=== PATIENT | female | born 1965 | race Caucasian/White ===

== ENCOUNTER 2019-03-18 02:31 | Inpatient (IN) | payer MEDICAID ==
[2019-03-18 03:11] LABS: ADD MAN DIFF? NO
[2019-03-18 03:12] LABS: WHITE BLOOD COUNT 15.9 10^3/ul (4.8-10.8)
[2019-03-18] MEDS: SOD CHLORIDE 0.9% 1,000 ML IV ×2 (03:12→05:07)
[2019-03-18] MEDS: ONDANSETRON 4 MG INJ IV (03:12)
[2019-03-18 03:13] LABS: BASOPHILS % 0.1 % (0.0-2.0); EOSINOPHILS % 0.1 % (0.0-7.0); HEMATOCRIT 23.9 % (37.0-47.0); HEMOGLOBIN 7.9 g/dl (12.0-16.0); LYMPHOCYTES # 2.4 10^3/ul (0.8-2.9); LYMPHOCYTES % 15.2 % (15.0-51.0); MEAN CORPUSCULAR HEMOGLOBIN 29.2 pg (29.0-33.0); MEAN CORPUSCULAR HGB CONC 33.1 g/dl (32.0-37.0); MEAN CORPUSCULAR VOLUME 88.2 fl (82.0-101.0); MEAN PLATELET VOLUME 8.8 fl (7.4-10.4); MONOCYTE # 0.5 10^3/ul (0.3-0.9); MONOCYTES % 3.2 % (0.0-11.0); NEUTROPHIL # 12.6 10^3/ul (1.6-7.5); NEUTROPHILS % 79.2 % (39.0-77.0); NUCLEATED RED BLOOD CELLS # 0.1 10^3/ul (0.0-0.0); NUCLEATED RED BLOOD CELLS% 0.7 /100WBC (0.0-0.0); PLATELET COUNT 576 10^3/UL (140-415); RED BLOOD COUNT 2.71 10^6/ul (4.20-5.40)
[2019-03-18] MEDS: morphine 4 MG/ML VIAL IV (03:13)
[2019-03-18 03:31] LABS: INR 1.03; PROTIME 13.6 Sec (11.9-14.9); PT RATIO 1.1
[2019-03-18 03:32] LABS: PARTIAL THROMBOPLASTIN TIME 44.5 Sec (23.0-35.0)
[2019-03-18 04:50] LABS: ALANINE AMINOTRANSFERASE 29 IU/L (13-69); ALBUMIN 2.4 g/dl (3.3-4.9); ALBUMIN/GLOBULIN RATIO 0.66; ALKALINE PHOSPHATASE 513 IU/L (42-121); ANION GAP 7 (5-13); ASPARTATE AMINO TRANSFERASE 112 IU/L (15-46); BILIRUBIN,INDIRECT 0.2 mg/dl (0-1.1); BILIRUBIN,TOTAL 0.2 mg/dl (0.2-1.3); BLOOD UREA NITROGEN 14 mg/dl (7-20); CALCIUM 8.8 mg/dl (8.4-10.2); CARBON DIOXIDE 25 mmol/L (21-31); CHLORIDE 110 mmol/L (97-110); Estimated GFR 36 mL/min (>60); GLUCOSE 108 mg/dl (70-220); LIPASE 71 U/L (23-300); SODIUM 142 mmol/L (135-144)
[2019-03-18] MEDS ORDERED: ACETAMINOPHEN 325 MG TAB PO (05:30)
[2019-03-18] MEDS ORDERED: ONDANSETRON 4 MG INJ IV ×2 (05:30→07:00)
[2019-03-18] MEDS ORDERED: ALBUTEROL/IPRATROPIUM (NEB) 3 ML AMP HHN (07:00)
[2019-03-18] MEDS: HYDROmorphONE 1 MG/ML SYG IV ×3 (10:04→23:28)
[2019-03-18] MEDS: NACL 0.9% 3 ML SYG IV (18:11)
[2019-03-19] MEDS: HYDROmorphONE 1 MG/ML SYG IV ×5 (05:04→20:09)
[2019-03-19 06:09] LABS: ADD MAN DIFF? NO
[2019-03-19 06:13] LABS: WHITE BLOOD COUNT 18.8 10^3/ul (4.8-10.8)
[2019-03-19 06:13] LABS: BASOPHILS % 0.2 % (0.0-2.0); EOSINOPHILS % 0.1 % (0.0-7.0); HEMATOCRIT 24.3 % (37.0-47.0); HEMOGLOBIN 7.8 g/dl (12.0-16.0); LYMPHOCYTES # 2.1 10^3/ul (0.8-2.9); LYMPHOCYTES % 11.2 % (15.0-51.0); MEAN CORPUSCULAR HEMOGLOBIN 29.3 pg (29.0-33.0); MEAN CORPUSCULAR HGB CONC 32.1 g/dl (32.0-37.0); MEAN CORPUSCULAR VOLUME 91.4 fl (82.0-101.0); MEAN PLATELET VOLUME 8.9 fl (7.4-10.4); MONOCYTE # 0.7 10^3/ul (0.3-0.9); MONOCYTES % 3.8 % (0.0-11.0); NEUTROPHIL # 15.6 10^3/ul (1.6-7.5); NEUTROPHILS % 82.6 % (39.0-77.0); NUCLEATED RED BLOOD CELLS # 0.1 10^3/ul (0.0-0.0); NUCLEATED RED BLOOD CELLS% 0.4 /100WBC (0.0-0.0); PLATELET COUNT 552 10^3/UL (140-415); RED BLOOD COUNT 2.66 10^6/ul (4.20-5.40); RED CELL DISTRIBUTION WIDTH 17.2 % (11.5-14.5)
[2019-03-19 06:26] LABS: HEMOGLOBIN A1C 5.8 % (0-5.9)
[2019-03-19 06:40] LABS: ALANINE AMINOTRANSFERASE 51 IU/L (13-69); ALBUMIN 2.6 g/dl (3.3-4.9); ALBUMIN/GLOBULIN RATIO 0.65; ALKALINE PHOSPHATASE 499 IU/L (42-121); ANION GAP 6 (5-13); ASPARTATE AMINO TRANSFERASE 293 IU/L (15-46); BILIRUBIN,INDIRECT 0.3 mg/dl (0-1.1); BILIRUBIN,TOTAL 0.3 mg/dl (0.2-1.3); BLOOD UREA NITROGEN 13 mg/dl (7-20); CALCIUM 8.8 mg/dl (8.4-10.2); CARBON DIOXIDE 25 mmol/L (21-31); CHLORIDE 107 mmol/L (97-110); CHOL/HDL RATIO 6.5 RATIO; CHOLESTEROL 131 mg/dl (100-200); Estimated GFR 39 mL/min (>60); GLUCOSE 80 mg/dl (70-220); HDL CHOLESTEROL 20 mg/dl (37-92); LDL CHOLESTEROL,CALCULATED 81 mg/dl; MAGNESIUM 1.9 mg/dl (1.7-2.5); PHOSPHORUS 2.7 mg/dl (2.5-4.9); POTASSIUM 4.2 mmol/L (3.5-5.1); SODIUM 138 mmol/L (135-144); TOTAL PROTEIN 6.6 g/dl (6.1-8.1); TRIGLYCERIDES 148 mg/dl (0-149)
[2019-03-19 06:42] LABS: IRON 22 ug/dl (35-150)
[2019-03-19 06:51] LABS: % IRON SATURATION 12 % SAT (22-52); TOTAL IRON BINDING CAPACITY 185 ug/dl (241-421)
[2019-03-19 07:09] LABS: CARCINOEMBRYONIC ANTIGEN 1.1 ng/ml (0.0-5.0)
[2019-03-19 07:13] LABS: CANCER ANTIGEN 19-9 4.4 U/ml (0.0-37.0)
[2019-03-19 07:19] LABS: ALPHA FETOPROTEIN 3.01 IU/L (0.00-7.21)
[2019-03-19 14:23] LABS: HEPATITIS B SURFACE ANTIGEN NEGATIVE (NEGATIVE)
[2019-03-19 14:40] LABS: HEPATITIS C VIRAL ANTIBODY NEGATIVE (NEGATIVE)
[2019-03-19 14:42] LABS: HEPATITIS B SURFACE ANTIBODY NEGATIVE (NEGATIVE)
[2019-03-19] MEDS: FUROSEMIDE 20 MG INJ IV (15:01)
[2019-03-19] MEDS: POLYETHYLENE GLYCOL 17 GM PACKET PO (20:09)
[2019-03-20] MEDS: HYDROmorphONE 1 MG/ML SYG IV ×6 (00:59→22:36)
[2019-03-20] MEDS: FUROSEMIDE 20 MG INJ IV (08:39)
[2019-03-20] MEDS: POLYETHYLENE GLYCOL 17 GM PACKET PO ×2 (08:39→22:24)
[2019-03-20 11:02] LABS: PROTIME 15.3 Sec (11.9-14.9); PT RATIO 1.2
[2019-03-20 11:03] LABS: PARTIAL THROMBOPLASTIN TIME 48.7 Sec (23.0-35.0)
[2019-03-21] MEDS: HYDROmorphONE 1 MG/ML SYG IV ×5 (02:51→21:11)
[2019-03-21 05:41] LABS: ADD MAN DIFF? NO
[2019-03-21 05:44] LABS: WHITE BLOOD COUNT 18.4 10^3/ul (4.8-10.8)
[2019-03-21 05:44] LABS: BASOPHILS % 0.2 % (0.0-2.0); EOSINOPHILS % 0.1 % (0.0-7.0); HEMATOCRIT 22.1 % (37.0-47.0); HEMOGLOBIN 7.1 g/dl (12.0-16.0); LYMPHOCYTES # 2.5 10^3/ul (0.8-2.9); LYMPHOCYTES % 13.6 % (15.0-51.0); MEAN CORPUSCULAR HEMOGLOBIN 28.4 pg (29.0-33.0); MEAN CORPUSCULAR HGB CONC 32.1 g/dl (32.0-37.0); MEAN CORPUSCULAR VOLUME 88.4 fl (82.0-101.0); MEAN PLATELET VOLUME 9.4 fl (7.4-10.4); MONOCYTE # 0.9 10^3/ul (0.3-0.9); MONOCYTES % 4.9 % (0.0-11.0); NEUTROPHIL # 14.6 10^3/ul (1.6-7.5); NEUTROPHILS % 79.2 % (39.0-77.0); NUCLEATED RED BLOOD CELLS # 0.1 10^3/ul (0.0-0.0); NUCLEATED RED BLOOD CELLS% 0.4 /100WBC (0.0-0.0); PLATELET COUNT 525 10^3/UL (140-415); RED CELL DISTRIBUTION WIDTH 17.4 % (11.5-14.5)
[2019-03-21 06:12] LABS: ANION GAP 6 (5-13); Estimated GFR 43 mL/min (>60)
[2019-03-21 06:21] LABS: BLOOD UREA NITROGEN 14 mg/dl (7-20); CALCIUM 9.2 mg/dl (8.4-10.2); CARBON DIOXIDE 28 mmol/L (21-31); CHLORIDE 104 mmol/L (97-110); GLUCOSE 94 mg/dl (70-220); POTASSIUM 4.1 mmol/L (3.5-5.1); SODIUM 138 mmol/L (135-144)
[2019-03-21] MEDS ORDERED: MIDAZOLAM 1 MG/ML 2 ML INJ (08:51)
[2019-03-21] MEDS ORDERED: FENTAnyl 50 MCG/ML VIAL ×2 (08:51→08:52)
[2019-03-21] MEDS ORDERED: LIDOCAINE 1% (MDV) 20 ML INJ (09:26)
[2019-03-21] MEDS ORDERED: GELATIN 12MM X 7 MM SPONGE (09:26)
[2019-03-21] MEDS: FUROSEMIDE 20 MG INJ IV (11:23)
[2019-03-21] MEDS: POLYETHYLENE GLYCOL 17 GM PACKET PO ×2 (11:23→21:10)
[2019-03-21 22:27] LABS: CANCER ANTIGEN 15-3 23 U/mL (<32)
[2019-03-21] MEDS: ACETAMINOPHEN 325 MG TAB PO (23:11)
[2019-03-22] MEDS: HYDROmorphONE 1 MG/ML SYG IV ×5 (04:21→21:22)
[2019-03-22] MEDS: POLYETHYLENE GLYCOL 17 GM PACKET PO ×2 (08:18→21:21)
[2019-03-22] MEDS: NACL 0.9% 3 ML SYG IV (08:18)
[2019-03-22] MEDS: FUROSEMIDE 20 MG INJ IV (08:18)
[2019-03-22] MEDS ORDERED: LIDOCAINE 1%/EPI 30 ML INJ (11:23)
[2019-03-22] MEDS ORDERED: HEPARIN 1000 UNITS/ML 10 ML INJ (11:54)
[2019-03-22] MEDS ORDERED: FENTAnyl 50 MCG/ML VIAL ×2 (11:54→12:47)
[2019-03-22] MEDS ORDERED: MIDAZOLAM 1 MG/ML 2 ML INJ ×2 (11:54→12:47)
[2019-03-22] MEDS ORDERED: POLYMYXIN/BACITRACIN 1L IRRIG (12:12)
[2019-03-22] MEDS ORDERED: CEFAZOLIN 1 GM/50 ML (PMX) 0 ML IVPB (12:19)
[2019-03-22] MEDS ORDERED: CEFAZOLIN 1 GM/50 ML (PMX) 50 ML IVPB (12:21)
[2019-03-22 15:38] LABS: ANION GAP 8 (5-13); BLOOD UREA NITROGEN 13 mg/dl (7-20); CALCIUM 8.9 mg/dl (8.4-10.2); CARBON DIOXIDE 27 mmol/L (21-31); CHLORIDE 103 mmol/L (97-110); CREATININE 1.17 mg/dl (0.44-1.00); Estimated GFR 49 mL/min (>60); GLUCOSE 74 mg/dl (70-220); POTASSIUM 3.6 mmol/L (3.5-5.1); SODIUM 138 mmol/L (135-144)
[2019-03-22 19:02] LABS: FREE T4 (FREE THYROXINE) 0.41 ng/dl (0.64-1.79)
[2019-03-22] MEDS: BISACODYL (EC) 5 MG TAB PO (21:21)
[2019-03-22] MEDS: ACETAMINOPHEN 325 MG TAB PO (23:54)
[2019-03-23] MEDS: HYDROmorphONE 1 MG/ML SYG IV ×5 (00:50→15:19)
[2019-03-23] MEDS: POLYETHYLENE GLYCOL 17 GM PACKET PO (08:54)
[2019-03-23] MEDS: FUROSEMIDE 20 MG INJ IV (08:55)
[2019-03-23 09:56] LABS: OCCULT BLOOD STOOL NEGATIVE (NEGATIVE)
== END 2019-03-23 16:55 | disposition home or self-care (01) | DRG 421 ==
LOC: E/R 02:31 → 2NE 05:28
PROC: 0FB10ZX Excision of Right Lobe Liver, Open Approach, Diagnostic (ICD-10-PCS; principal; 2019-03-21)
PROC: 0JH60WZ Insertion of Totally Implantable Vascular Access Device into Chest Subcutaneous Tissue and Fascia, Open Approach (ICD-10-PCS; 2019-03-21)
PROC: 02HV33Z Insertion of Infusion Device into Superior Vena Cava, Percutaneous Approach (ICD-10-PCS; 2019-03-21)
PROC: B245ZZ4 Ultrasonography of Left Heart, Transesophageal (ICD-10-PCS; 2019-03-23)
DX: C78.7 Secondary malignant neoplasm of liver and intrahepatic bile duct (principal); N17.9 Acute kidney failure, unspecified; Z68.41 Body mass index [BMI] 40.0-44.9, adult; I12.9 Hypertensive chronic kidney disease with stage 1 through stage 4 chronic kidney disease, or unspecified chronic kidney disease; N18.9 Chronic kidney disease, unspecified; E66.01 Morbid (severe) obesity due to excess calories; D64.9 Anemia, unspecified; C80.1 Malignant (primary) neoplasm, unspecified; K80.80 Other cholelithiasis without obstruction; E03.9 Hypothyroidism, unspecified; E87.70 Fluid overload, unspecified
CPT/HCPCS: 36415; 36561; 71045; 71250; 74176; 74182; 76775; 76942; 77012; 80048; 80053; 80061; 82105; 82270; 82378; 82728; 83036; 83540; 83690; 83735; 84100; 84439; 84443; 85025; 85610; 85730; 86300; 86301; 86706; 86803; 87340; 88307; 88313; 88341; 88342; 93306; 96361; 96374; 96375; 99285-25

== ENCOUNTER 2019-04-25 16:07 | Inpatient (IN) | payer MEDICAID, OTHER ==
[2019-04-25 16:58] LABS: ABNORMAL IP MESSAGE 1; HEMATOCRIT 16.2 % (37.0-47.0); MEAN CORPUSCULAR HEMOGLOBIN 31.8 pg (29.0-33.0); MEAN CORPUSCULAR HGB CONC 30.9 g/dl (32.0-37.0); MEAN CORPUSCULAR VOLUME 103.2 fl (82.0-101.0); MEAN PLATELET VOLUME 9.9 fl (7.4-10.4); PLATELET COUNT 102 10^3/UL (140-415); RED BLOOD COUNT 1.57 10^6/ul (4.20-5.40)
[2019-04-25 16:58] LABS: WHITE BLOOD COUNT 1.8 10^3/ul (4.8-10.8)
[2019-04-25] MEDS ORDERED: SOD CHLORIDE 0.9% 1,000 ML IV (17:00)
[2019-04-25 17:07] LABS: ADD MAN DIFF? YES; POSITIVE DIFF @See below
[2019-04-25 17:17] LABS: INR 1.08; PROTIME 14.1 Sec (11.9-14.9); PT RATIO 1.1
[2019-04-25 17:18] LABS: PARTIAL THROMBOPLASTIN TIME 40.4 Sec (23.0-35.0)
[2019-04-25 17:19] LABS: ALANINE AMINOTRANSFERASE 61 IU/L (13-69); ALBUMIN 2.7 g/dl (3.3-4.9); ALBUMIN/GLOBULIN RATIO 0.67; ALKALINE PHOSPHATASE 1047 IU/L (42-121); ANION GAP 7 (5-13); ASPARTATE AMINO TRANSFERASE 236 IU/L (15-46); BILIRUBIN,INDIRECT 0.8 mg/dl (0-1.1); BILIRUBIN,TOTAL 0.9 mg/dl (0.2-1.3); BLOOD UREA NITROGEN 17 mg/dl (7-20); CALCIUM 8.5 mg/dl (8.4-10.2); CARBON DIOXIDE 24 mmol/L (21-31); CHLORIDE 97 mmol/L (97-110); CREATININE 0.62 mg/dl (0.44-1.00); Estimated GFR > 60 mL/min (>60); GLUCOSE 98 mg/dl (70-220); POTASSIUM 4.3 mmol/L (3.5-5.1); SODIUM 128 mmol/L (135-144); TOTAL PROTEIN 6.7 g/dl (6.1-8.1)
[2019-04-25] MEDS: SODIUM CHLORIDE 0.9% 1L BAG IV* (17:20)
[2019-04-25] MEDS: FENTAnyl 50 MCG/ML VIAL IV (17:20)
[2019-04-25 17:44] LABS: ADD UMIC YES; UR ASCORBIC ACID NEGATIVE (NEGATIVE); UR BACTERIA FEW /HPF (NONE SEEN); UR BILIRUBIN (Dip) NEGATIVE (NEGATIVE); UR BLOOD (Dip) 1+ mg/dL (NEGATIVE); UR CLARITY CLOUDY (CLEAR); UR COLOR AMBER (YELLOW); UR GLUCOSE (Dip) NEGATIVE (NEGATIVE); UR KETONES (Dip) NEGATIVE (NEGATIVE); UR LEUKOCYTE ESTERASE (Dip) 1+ Leu/ul (NEGATIVE); UR NITRITE (Dip) NEGATIVE (NEGATIVE); UR RBC 0 /HPF (0-5); UR TOTAL PROTEIN (Dip) NEGATIVE (NEGATIVE); UR UROBILINOGEN (Dip) 2+ mg/dL (NEGATIVE); UR WBC 5 /HPF (0-5)
[2019-04-25 17:54] LABS: BAND NEUTROPHILS % (M) 1 % (0-4); ERYTHROBLAST% (NRBC) (M) 2 % (0-0); LYMPHOCYTES #M 1.2 10^3/ul (0.8-2.9); LYMPHOCYTES % (M) 68 % (15-51); MONOCYTES % (M) 1 % (0-11); SEG NEUT #M 0.5 10^3/ul (1.6-7.5); SEGMENTED NEUTROPHILS (M) % 30 % (39-77); SMUDGE%M 3 % (0-0)
[2019-04-25 17:54] LABS: TROPONIN-I < 0.012 ng/ml (0.000-0.120)
[2019-04-25 17:56] LABS: ANISOCYTOSIS 1+ (0-0); HYPOCHROMASIA 1+ (0-0); PLATELET ESTIMATE DECREASED
[2019-04-25 17:57] LABS: PATH REVIEW? YES-PATH TO CONFIRM
[2019-04-25 18:23] LABS: LIPASE 137 U/L (23-300)
[2019-04-25] MEDS: CEFTRIAXONE 1 GM/50 ML (PMX) 50 ML IVPB (18:32)
[2019-04-25] MEDS ORDERED: NACL 0.9% 3 ML SYG IV (19:00)
[2019-04-25 19:04] LABS: IMMEDIATE SPIN CROSSMATCH 1 4
[2019-04-25 20:00] LABS: LACTIC ACID 1.4 mmol/L (0.5-2.0)
[2019-04-25] MEDS: SOD CHLORIDE 0.9% 1,000 ML IV (21:35)
[2019-04-25 22:09] LABS: LACTIC ACID 1.2 mmol/L (0.5-2.0)
[2019-04-25] MEDS: MIDODRINE 5 MG TAB PO (22:11)
[2019-04-26] MEDS: morphine 2 MG INJ IV ×3 (00:50→08:04)
[2019-04-26] MEDS: HYDROCODONE/APAP (5/325) TAB PO ×2 (00:51→08:04)
[2019-04-26] MEDS: HYDROmorphONE 1 MG/ML SYG IV (01:50)
[2019-04-26 05:03] LABS: ADD MAN DIFF? NO
[2019-04-26 05:21] LABS: WHITE BLOOD COUNT 1.6 10^3/ul (4.8-10.8)
[2019-04-26 05:21] LABS: ABNORMAL IP MESSAGE 1; BASOPHILS % 0.6 % (0.0-2.0); HEMATOCRIT 22.3 % (37.0-47.0); HEMOGLOBIN 7.2 g/dl (12.0-16.0); LYMPHOCYTES # 1.2 10^3/ul (0.8-2.9); LYMPHOCYTES % 77.7 % (15.0-51.0); MEAN CORPUSCULAR HGB CONC 32.3 g/dl (32.0-37.0); MEAN CORPUSCULAR VOLUME 96.1 fl (82.0-101.0); MEAN PLATELET VOLUME 10.6 fl (7.4-10.4); MONOCYTE # 0.1 10^3/ul (0.3-0.9); MONOCYTES % 3.8 % (0.0-11.0); NEUTROPHIL # 0.3 10^3/ul (1.6-7.5); NEUTROPHILS % 17.9 % (39.0-77.0); PLATELET COUNT 72 10^3/UL (140-415); RED BLOOD COUNT 2.32 10^6/ul (4.20-5.40); RED CELL DISTRIBUTION WIDTH 21.2 % (11.5-14.5)
[2019-04-26 05:24] LABS: POSITIVE DIFF @See below
[2019-04-26 05:43] LABS: ALANINE AMINOTRANSFERASE 52 IU/L (13-69); ALBUMIN 2.6 g/dl (3.3-4.9); ALBUMIN/GLOBULIN RATIO 0.74; ALKALINE PHOSPHATASE 912 IU/L (42-121); ANION GAP 7 (5-13); ASPARTATE AMINO TRANSFERASE 205 IU/L (15-46); BILIRUBIN,INDIRECT 0.7 mg/dl (0-1.1); BILIRUBIN,TOTAL 0.8 mg/dl (0.2-1.3); BLOOD UREA NITROGEN 16 mg/dl (7-20); CALCIUM 7.9 mg/dl (8.4-10.2); CARBON DIOXIDE 23 mmol/L (21-31); CHLORIDE 101 mmol/L (97-110); CHOL/HDL RATIO 7.9 RATIO; CHOLESTEROL 270 mg/dl (100-200); CREATININE 0.52 mg/dl (0.44-1.00); Estimated GFR > 60 mL/min (>60); GLUCOSE 84 mg/dl (70-220); HDL CHOLESTEROL 34 mg/dl (37-92); LDL CHOLESTEROL,CALCULATED 206 mg/dl; MAGNESIUM 1.9 mg/dl (1.7-2.5); POTASSIUM 3.9 mmol/L (3.5-5.1); SODIUM 131 mmol/L (135-144); TOTAL PROTEIN 6.1 g/dl (6.1-8.1); TRIGLYCERIDES 149 mg/dl (0-149)
[2019-04-26] MEDS: PANTOPRAZOLE (EC) 40 MG TAB PO ×2 (06:45→06:46)
[2019-04-26] MEDS: SOD CHLORIDE 0.9% 1,000 ML IV ×5 (08:05→23:48)
[2019-04-26] MEDS: MIDODRINE 5 MG TAB PO ×3 (09:00→13:49)
[2019-04-26 09:32] LABS: OCCULT BLOOD STOOL NEGATIVE (NEGATIVE)
[2019-04-26] MEDS ORDERED: FENTAnyl PATCH 50 MCG/HR TRANSDERM (10:00)
[2019-04-26] MEDS: FENTAnyl 50 MCG/ML VIAL IV ×3 (10:30→15:39)
[2019-04-26] MEDS ORDERED: LORAZEPAM 2 MG INJ IV (10:56)
[2019-04-26] MEDS ORDERED: FENTAnyl (DRIP) 1000 mcg/100mL 100 ML IV (11:00)
[2019-04-26] MEDS: LORAZEPAM 2 MG INJ IV ×3 (11:14→22:45)
[2019-04-26] MEDS: PIPER-TAZO 3.375 GM IV (PMX) 100 ML IVPB ×2 (14:39→21:22)
[2019-04-26] MEDS: HYDROmorphONE 2 MG/ML SYG IV (16:42)
[2019-04-26] MEDS: HYDROmorphONE 0.2 MG/ML PCA IV (19:58)
[2019-04-27] MEDS: PANTOPRAZOLE (EC) 40 MG TAB PO (05:25)
[2019-04-27] MEDS: PIPER-TAZO 3.375 GM IV (PMX) 100 ML IVPB (05:25)
[2019-04-27 05:35] LABS: ADD MAN DIFF? NO
[2019-04-27 05:44] LABS: ABNORMAL IP MESSAGE 1; HEMATOCRIT 24.9 % (37.0-47.0); LYMPHOCYTES # 1.2 10^3/ul (0.8-2.9); MEAN CORPUSCULAR HEMOGLOBIN 30.8 pg (29.0-33.0); MEAN CORPUSCULAR HGB CONC 32.1 g/dl (32.0-37.0); MEAN CORPUSCULAR VOLUME 95.8 fl (82.0-101.0); MEAN PLATELET VOLUME 10.5 fl (7.4-10.4); MONOCYTES % 2.9 % (0.0-11.0); NEUTROPHIL # 0.1 10^3/ul (1.6-7.5); NEUTROPHILS % 10.1 % (39.0-77.0); PLATELET COUNT 42 10^3/UL (140-415)
[2019-04-27 05:44] LABS: WHITE BLOOD COUNT 1.4 10^3/ul (4.8-10.8)
[2019-04-27 05:53] LABS: POSITIVE DIFF @See below
[2019-04-27 06:16] LABS: ALANINE AMINOTRANSFERASE 50 IU/L (13-69); ALBUMIN 2.5 g/dl (3.3-4.9); ALBUMIN/GLOBULIN RATIO 0.71; ALKALINE PHOSPHATASE 859 IU/L (42-121); ANION GAP 7 (5-13); ASPARTATE AMINO TRANSFERASE 181 IU/L (15-46); BILIRUBIN,INDIRECT 0.7 mg/dl (0-1.1); BILIRUBIN,TOTAL 0.8 mg/dl (0.2-1.3); BLOOD UREA NITROGEN 14 mg/dl (7-20); CALCIUM 8.3 mg/dl (8.4-10.2); CARBON DIOXIDE 22 mmol/L (21-31); CHLORIDE 105 mmol/L (97-110); CREATININE 0.51 mg/dl (0.44-1.00); Estimated GFR > 60 mL/min (>60); GLUCOSE 73 mg/dl (70-220); MAGNESIUM 2.1 mg/dl (1.7-2.5); POTASSIUM 3.8 mmol/L (3.5-5.1); SODIUM 134 mmol/L (135-144)
[2019-04-27] MEDS: MIDODRINE 5 MG TAB PO (07:47)
[2019-04-27] MEDS: HYDROmorphONE 0.2 MG/ML PCA IV (17:46)
[2019-04-27] MEDS ORDERED: ACETAMINOPHEN 325 MG TAB PO (18:00)
[2019-04-27] MEDS ORDERED: ACETAMINOPHEN 650 MG SUPP PR (18:30)
[2019-04-27] MEDS: LORAZEPAM 2 MG INJ IV (19:11)
[2019-04-27] MEDS ORDERED: ARTIFICIAL TEARS 15 ML OPH BOTH EYES (19:30)
[2019-04-27] MEDS ORDERED: ATROPINE 1% 5 ML OPH SL (19:30)
[2019-04-28] MEDS: LORAZEPAM 2 MG INJ IV (00:44)
[2019-04-28] MEDS: DIMETHICONE STICK TOP (00:52)
[2019-04-28] MEDS: SCOPOLAMINE 1.5 MG PATCH TRANSDERM (00:52)
[2019-04-28] MEDS: ALBUTEROL/IPRATROPIUM (NEB) 3 ML AMP HHN ×2 (14:38→19:14)
[2019-04-28] MEDS: HYDROmorphONE 0.2 MG/ML PCA IV (14:55)
[2019-04-29] MEDS: ALBUTEROL/IPRATROPIUM (NEB) 3 ML AMP HHN (00:09)
[2019-04-29] MEDS: HYDROmorphONE 0.2 MG/ML PCA IV ×2 (08:00→23:59)
[2019-04-29] MEDS: ACETAMINOPHEN 325 MG TAB PO (16:11)
[2019-04-29] MEDS: LORAZEPAM 2 MG INJ IV (21:04)
[2019-04-30] MEDS: HYDROmorphONE 0.2 MG/ML PCA IV ×2 (09:30→22:47)
[2019-04-30] MEDS: NEOMYC/POLYMYX/BACIT 30 GM OINT TOP (13:26)
[2019-04-30] MEDS: ALBUTEROL/IPRATROPIUM (NEB) 3 ML AMP HHN ×2 (17:18→20:17)
[2019-04-30] MEDS: BISACODYL 10 MG SUPP PR (20:10)
[2019-05-01] MEDS: ALBUTEROL/IPRATROPIUM (NEB) 3 ML AMP HHN ×4 (00:48→21:19)
[2019-05-01] MEDS: LORAZEPAM 2 MG INJ IV ×3 (00:55→21:12)
[2019-05-01] MEDS: LEVOFLOXACIN 500 MG TAB PO (05:30)
[2019-05-01] MEDS: NEOMYC/POLYMYX/BACIT 30 GM OINT TOP (07:46)
[2019-05-01] MEDS: HYDROmorphONE 0.2 MG/ML PCA IV ×2 (07:47→19:02)
[2019-05-01] MEDS: LIDOCAINE 2% VISC 15 ML CUP PO (17:43)
[2019-05-02] MEDS: ONDANSETRON 4 MG INJ IV (01:26)
[2019-05-02] MEDS: ALBUTEROL/IPRATROPIUM (NEB) 3 ML AMP HHN ×3 (01:41→20:32)
[2019-05-02] MEDS: LORAZEPAM 2 MG INJ IV (04:15)
[2019-05-02] MEDS: LEVOFLOXACIN 500 MG TAB PO (05:27)
[2019-05-02] MEDS: HYDROmorphONE 0.2 MG/ML PCA IV ×2 (06:50→17:23)
[2019-05-02] MEDS: NEOMYC/POLYMYX/BACIT 30 GM OINT TOP (13:07)
[2019-05-02] MEDS: LIDOCAINE 2% VISC 15 ML CUP PO (13:34)
[2019-05-02] MEDS: BISACODYL 10 MG SUPP PR (18:16)
[2019-05-03] MEDS: ALBUTEROL/IPRATROPIUM (NEB) 3 ML AMP HHN ×3 (00:42→14:37)
[2019-05-03] MEDS: HYDROmorphONE 0.2 MG/ML PCA IV ×3 (04:09→23:09)
[2019-05-03] MEDS: LEVOFLOXACIN 500 MG TAB PO (05:36)
[2019-05-03] MEDS: NEOMYC/POLYMYX/BACIT 30 GM OINT TOP (09:12)
[2019-05-03] MEDS: LORAZEPAM 2 MG INJ IV ×2 (09:12→21:39)
[2019-05-03] MEDS: LIDOCAINE 2% VISC 15 ML CUP PO ×2 (17:30→18:08)
[2019-05-04] MEDS: LORAZEPAM 2 MG INJ IV ×2 (05:02→10:01)
[2019-05-04] MEDS: LEVOFLOXACIN 500 MG TAB PO (05:02)
[2019-05-04] MEDS: LIDOCAINE 2% VISC 15 ML CUP PO ×3 (07:00→20:39)
[2019-05-04] MEDS: HYDROmorphONE 0.2 MG/ML PCA IV ×2 (09:06→17:49)
[2019-05-04] MEDS: NEOMYC/POLYMYX/BACIT 30 GM OINT TOP (15:20)
[2019-05-05] MEDS: HYDROmorphONE 0.2 MG/ML PCA IV ×2 (01:39→09:59)
[2019-05-05] MEDS: LEVOFLOXACIN 500 MG TAB PO (06:38)
[2019-05-05] MEDS: LIDOCAINE 2% VISC 15 ML CUP PO ×2 (07:45→11:55)
[2019-05-05] MEDS: NEOMYC/POLYMYX/BACIT 30 GM OINT TOP (08:43)
[2019-05-05] MEDS: LORAZEPAM 2 MG INJ IV ×2 (08:44→14:01)
[2019-05-05] MEDS: HYDROmorphONE 2 MG/ML SYG IV (16:33)
== END 2019-05-05 16:48 | disposition hospice, home (50) | DRG 871 ==
LOC: E/R 16:07 → ICU 18:15 → 2NE 04-27 20:21
PROC: 30233N1 Transfusion of Nonautologous Red Blood Cells into Peripheral Vein, Percutaneous Approach (ICD-10-PCS; principal; 2019-04-25)
DX: A41.9 Sepsis, unspecified organism (principal); R57.1 Hypovolemic shock; D61.810 Antineoplastic chemotherapy induced pancytopenia; C22.9 Malignant neoplasm of liver, not specified as primary or secondary; N39.0 Urinary tract infection, site not specified; C7B.8 Other secondary neuroendocrine tumors; R18.8 Other ascites; C78.00 Secondary malignant neoplasm of unspecified lung; R65.20 Severe sepsis without septic shock; I95.9 Hypotension, unspecified; D64.81 Anemia due to antineoplastic chemotherapy; E03.9 Hypothyroidism, unspecified; N20.0 Calculus of kidney; E66.9 Obesity, unspecified; Z68.38 Body mass index [BMI] 38.0-38.9, adult
CPT/HCPCS: 36430; 71045; 71250; 74176; 76700; 80053; 80061; 81001; 82270; 83036; 83605; 83690; 83735; 84100; 84443; 84484; 85025; 85610; 85730; 86850; 86900; 86901; 86920; 87040-91; 87045; 87081; 87086; 93005; 94640; 94664; 96374; 99285-25